=== PATIENT | female | born 1980 ===

== ENCOUNTER 2018-10-20 09:37 | Outpatient (CLI) | payer OTHER | END 2018-10-20 09:38 | disposition home or self-care (01) | LOC: C.MAMMO 09:37 | DX: Z12.31 Encounter for screening mammogram for malignant neoplasm of breast (principal) ==

== ENCOUNTER 2018-11-06 08:56 | Outpatient (CLI) | payer OTHER | END 2018-11-06 08:57 | disposition home or self-care (01) | LOC: C.USIC 08:56 ==